=== PATIENT | female | born 1975 | race African-American/Black ===

== ENCOUNTER → 2020-04-09 | Outpatient (CLI) | payer SELFPAY | END | disposition home or self-care (01) | LOC: COVID19 16:10 | PROVIDERS: ATTEND Internal Medicine | DX: Z20.828 Contact with and (suspected) exposure to other viral communicable diseases (principal) ==

== ENCOUNTER 2020-08-12 21:59 | Emergency (ER) | payer SELFPAY ==
[~2020-08-12] VITALS: Ht 154.9 cm; Wt 49.9 kg
[2020-08-12 23:05] LABS: HEMATOCRIT 25.2 % (37.0-47.0); MEAN CELL VOLUME 82.9 fl (81.0-99.0); MEAN CORPUSCULAR HGB 23.4 pg (27.0-31.0); MEAN CORPUSCULAR HGB CONC 28.2 g/dl (33.0-37.0); NUCLEATED RED BLOOD CELL 0.1 10*3/uL (0.0-0.0); NUCLEATED RED BLOOD CELL 1.6 % (0.0-0.0); PLATELET COUNT AUTOMATED 93 10*3/uL (130-400); RED BLOOD COUNT 3.04 10*6/uL (4.10-5.10); RED CELL DISTRI WIDTH 23.8 % (0-14.5); WHITE BLOOD COUNT 3.8 10*3/uL (4.8-10.8)
[2020-08-12 23:21] LABS: ALBUMIN 2.3 gm/dl (3.1-4.5); ALKALINE PHOSPHATASE 275 U/L (45-117); BUN 8 mg/dl (7-24); CHLORIDE 104 mmol/L (98-107); CREATININE 0.59 mg/dL (0.55-1.02); POTASSIUM 3.2 mmol/L (3.5-5.1); SGOT/AST 77 IU/L (3-35); SGPT/ALT 41 U/L (12-78); SODIUM 138 mmol/L (136-145); TOTAL PROTEIN 7.1 gm/dL (6.4-8.2)
[2020-08-12 23:23] LABS: TOTAL CELLS COUNTED 100 #CELLS
[2020-08-12 23:24] LABS: INTERNATIONAL NORM RATIO 1.1 (2.0-3.5); MICROCYTOSIS SLIGHT; OVALOCYTES FEW; PLATELET SUFFICIENCY LOW (NORMAL); SCHISTOCYTES FEW
[2020-08-12 23:26] LABS: TROPONIN I < 0.015 ng/ml (<0.045)
[2020-08-13 01:55] LABS: CPK 51 U/L (26-192); LDH 398 U/L (84-246)
[2020-08-24 13:07] LABS: AMPHOTERICIN B MIC 0.5 ug/mL (.); CASPOFUNGIN MIC >8.0 ug/mL (.); FLUCONAZOLE MIC 2.0 ug/mL (.); FLUCYTOSINE MIC 2.0 ug/mL (.); ITRACONAZOLE MIC 0.06 ug/mL (.); KETOCONAZOLE MIC 0.06 ug/mL (.); VORICONAZOLE MIC 0.03 ug/mL (.)
== END 2020-08-13 04:41 | disposition short-term general hospital (02) ==
LOC: ED 21:59
PROVIDERS: Emergency Medicine
DX: J18.9 Pneumonia, unspecified organism (principal); D69.6 Thrombocytopenia, unspecified; Z20.822 Contact with and (suspected) exposure to COVID-19